=== PATIENT | male | born 1940 | race African-American/Black ===

== ENCOUNTER 2016-11-27 09:32 | Emergency (ER) | payer MEDICARE, BC ==
[~2016-11-27] VITALS: Ht 185.4 cm; Wt 98.0 kg
[~2016-11-27 09:32] MED LIST: NAPROSYN500 MG OR; NO MEDICATION
[2016-11-27] MEDS ORDERED: PREDNISONE10 MG PO (09:50)
[2016-11-27] MEDS ORDERED: TRAMADOL HYDROC50 MG PO (09:50)
[2016-11-27] MEDS ORDERED: COLCHICINE0.6 M2 PO (09:50)
[2016-11-27 10:45] VITALS: BP 166/84
== END 2016-11-27 10:45 | disposition home or self-care (01) ==
LOC: ED 09:32
PROC: 2W3CX1Z Immobilization of Right Lower Arm using Splint (ICD-10-PCS; principal; 2016-11-27)
DX: M10.031 Idiopathic gout, right wrist (principal); M25.531 Pain in right wrist

== ENCOUNTER → 2018-08-06 | Outpatient (REF) | payer MEDICARE, BC ==
[~2018-08-06] MED LIST changes: +COLCHICINE0.6 M2 PO; +METFORMIN500 MG PO; +PREDNISONE10 MG PO; +TRAMADOL HYDROC50 MG PO
[2018-08-06 08:32] LABS: ALBUMIN 3.9 g/dL (3.2-5.0); ANION GAP 14 (6-22 (CALC)); BILIRUBIN, TOTAL 0.7 mg/dL (0.0-1.4); BUN 18 mg/dL (8-23); BUN/CREATININE RATIO 14 (12-20 (CALC)); CALCULATED LDLCHOLESTEROL 122 mg/dL (62-129 (CALC)); CARBON DIOXIDE 31 mmol/l (22-30); CHLORIDE 97 mmol/l (95-108); CHOLESTEROL HDL RATIO 4.4 (<4.4 (CALC)); CREATININE 1.3 mg/dL (0.7-1.3); GFR 53 ML/MIN (>=60 (CALC)); GFR FOR AFR.AMER. > 60 ML/MIN (>=60 (CALC)); HDL CHOLESTEROL 43 mg/dL (>=40); POTASSIUM 4.7 mmol/l (3.5-5.1); SGOT/AST 24 u/l (19-48); SODIUM 137 mmol/l (137-146); TOTAL CHOLESTEROL 192 mg/dl (0-199); TOTAL PROTEIN 7.1 g/dL (6.3-8.2); TOTAL TRIGLYCERIDES 136 mg/dl (30-149); VLDL CHOLESTROL 27 mg/dl (0-38 (CALC))
[2018-08-06 09:34] LABS: ALKALINE PHOSPHATASE 162 u/l (38-126)
== END | disposition home or self-care (01) ==
LOC: LAB 06:51
PROVIDERS: ATTEND Internal Medicine Endocrinology, Diabetes & Metabolism
DX: E78.5 Hyperlipidemia, unspecified (principal); E11.9 Type 2 diabetes mellitus without complications; I10 Essential (primary) hypertension

== ENCOUNTER 2018-08-14 23:15 | Emergency (ER) | payer MEDICARE, BC ==
[~2018-08-14] VITALS: Ht 185.4 cm; Wt 90.0 kg
[~2018-08-14 23:15] MED LIST changes: -METFORMIN500 MG PO
[2018-08-14 23:59] LABS: HEMOGLOBIN 14.9 g/dl (14.0-18.0); IMMATURE GRANULOCYTES 0.2 % (0.0-5.0); MEAN CELL VOLUME 85.5 fL CALC (80.0-100.0); MEAN CORPUSCULAR HGB 30.3 pG CALC (26.0-32.0); MEAN CORPUSCULAR HGB CONC 35.5 g/L CALC (32.0-36.0); NEUT# 2.28 thou/uL (1.82-7.42); RED BLOOD COUNT 4.91 mill/uL (4.70-6.10); RED CELL DISTRI WIDTH 12.1 % (11.5-15.5)
[2018-08-15] MEDS ORDERED: METFORMIN500 MG PO (00:09)
[2018-08-15 00:11] LABS: ALBUMIN 4.2 g/dL (3.2-5.0); ALKALINE PHOSPHATASE 198 u/l (38-126); BILIRUBIN, TOTAL 0.6 mg/dL (0.0-1.4); BUN 19 mg/dL (8-23); BUN/CREATININE RATIO 15 (12-20 (CALC)); CARBON DIOXIDE 26 mmol/l (22-30); CHLORIDE 93 mmol/l (95-108); CREATININE 1.3 mg/dL (0.7-1.3); GFR 53 ML/MIN (>=60 (CALC)); GFR FOR AFR.AMER. > 60 ML/MIN (>=60 (CALC)); POTASSIUM 4.7 mmol/l (3.5-5.1); SGOT/AST 35 u/l (19-48); TOTAL PROTEIN 7.2 g/dL (6.3-8.2)
[2018-08-15 00:19] LABS: ANION GAP 16 (6-22 (CALC)); SODIUM 130 mmol/l (137-146)
[2018-08-15 00:47] LABS: URINE BILIRUBIN - DIPSTICK NEGATIVE (NEGATIVE); URINE BLOOD DIPSTICK NEGATIVE (NEGATIVE); URINE COLOR YELLOW; URINE GLUCOSE - DIPSTICK >=1000 mg/dL (NEGATIVE); URINE KETONE NEGATIVE (NEGATIVE); URINE LEUK ESTERASE NEGATIVE (NEGATIVE); URINE NITRITE - DIPSTICK NEGATIVE (Negative); URINE PROTEIN - DIPSTICK NEGATIVE (NEG-TRACE); URINE UROBILINOGEN - DIPSTICK 0.2 E.U./dL (0.2)
[2018-08-15 01:28] VITALS: BP 142/79
== END 2018-08-15 01:43 | disposition home or self-care (01) ==
LOC: ED 23:15
PROVIDERS: Family Medicine
DX: E11.65 Type 2 diabetes mellitus with hyperglycemia (principal); E78.00 Pure hypercholesterolemia, unspecified; Z91.11 Patient's noncompliance with dietary regimen

== ENCOUNTER 2021-06-17 16:36 | Inpatient (IN) | payer MEDICARE, BC ==
[~2021-06-17] VITALS: Ht 185.4 cm; Wt 93.0 kg
[~2021-06-17 16:36] MED LIST changes: +METFORMIN500 MG PO
[2021-06-17 17:06] LABS: GFR 58 ML/MIN (>=60 (CALC)); GFR FOR AFR.AMER. > 60 ML/MIN (>=60 (CALC))
[2021-06-17 17:08] LABS: HEMATOCRIT 43.5 % (39.0-50.0); HEMOGLOBIN 14.6 g/dl (14.0-18.0); IMMATURE GRANULOCYTES 0.2 % (0.0-5.0); MEAN CELL VOLUME 89.3 fL CALC (80.0-100.0); MEAN CORPUSCULAR HGB CONC 33.6 g/dL CAL (32.0-36.0); NEUT# 2.58 thou/uL (1.82-7.42); RED BLOOD COUNT 4.87 mill/uL (4.70-6.10); RED CELL DISTRI WIDTH 13.3 % (11.5-15.5)
[2021-06-17 17:26] LABS: ALBUMIN 3.9 g/dL (3.2-5.0); ALKALINE PHOSPHATASE 100 u/l (38-126); ANION GAP 11 (6-22 (CALC)); BILIRUBIN, TOTAL 0.5 mg/dL (0.0-1.4); BUN 15 mg/dL (8-23); BUN/CREATININE RATIO 13 (12-20 (CALC)); CARBON DIOXIDE 26 mmol/l (22-30); CHLORIDE 105 mmol/l (95-108); CREATININE 1.2 mg/dL (0.7-1.3); ETHYL ALCOHOL 0 mg/dl (0-30); GFR 58 ML/MIN (>=60 (CALC)); GFR FOR AFR.AMER. > 60 ML/MIN (>=60 (CALC)); LIPASE 33 u/l (23-300); POTASSIUM 4.1 mmol/l (3.5-5.1); SGOT/AST 23 u/l (19-48); SODIUM 138 mmol/l (137-146); TOTAL PROTEIN 7.5 g/dL (6.3-8.2)
[2021-06-17 17:31] LABS: ACT PARTIAL THROMBO TIME 21.3 SECONDS (20.0-32.5); PROTHROMBIN TIME 10.2 SECONDS (9.0-12.5)
[2021-06-17 18:13] LABS: URINE BILIRUBIN - DIPSTICK NEGATIVE (NEGATIVE); URINE BLOOD DIPSTICK NEGATIVE (NEGATIVE); URINE COLOR YELLOW; URINE GLUCOSE - DIPSTICK NEGATIVE (NEGATIVE); URINE KETONE NEGATIVE (NEGATIVE); URINE LEUK ESTERASE NEGATIVE (NEGATIVE); URINE PROTEIN - DIPSTICK NEGATIVE (NEG-TRACE); URINE UROBILINOGEN - DIPSTICK 0.2 E.U./dL (0.2)
[2021-06-17 18:17] LABS: URINE NITRITE - DIPSTICK NEGATIVE (Negative)
[2021-06-17] MEDS ORDERED: AMLODIPINE BESYL5 MG PO (19:11)
[2021-06-17 20:45] VITALS: BP 180/91
[2021-06-17 21:00] VITALS: BP 180/93
[2021-06-17 21:15] VITALS: BP 184/98
[2021-06-17 21:30] VITALS: BP 184/98
[2021-06-17 22:00] VITALS: BP 159/95
[2021-06-17 23:00] VITALS: BP 175/105
[2021-06-18] VITALS (12 sets, daily range): BP systolic 152–176; BP diastolic 72–89
[2021-06-18 05:46] LABS: C-REACTIVE PROTEIN < 0.5 mg/dL (0-0.9); CALCULATED LDLCHOLESTEROL 118 mg/dL (62-129 (CALC)); CHOLESTEROL HDL RATIO 4.5 (<4.4 (CALC)); HDL CHOLESTEROL 39 mg/dL (>=40); MAGNESIUM 2.1 mg/dL (1.6-2.3); TOTAL CHOLESTEROL 176 mg/dl (0-199); TOTAL TRIGLYCERIDES 91 mg/dl (30-149); VLDL CHOLESTROL 18 mg/dl (0-38 (CALC))
[2021-06-19] VITALS: BP 148/69
[2021-06-19 03:39] VITALS: BP 156/78
[2021-06-19 05:27] LABS: ANION GAP 8 (6-22 (CALC)); BUN 16 mg/dL (8-23); BUN/CREATININE RATIO 14 (12-20 (CALC)); CARBON DIOXIDE 29 mmol/l (22-30); CHLORIDE 106 mmol/l (95-108); CREATININE 1.2 mg/dL (0.7-1.3); GFR 58 ML/MIN (>=60 (CALC)); GFR FOR AFR.AMER. > 60 ML/MIN (>=60 (CALC)); POTASSIUM 4.4 mmol/l (3.5-5.1); SODIUM 139 mmol/l (137-146)
[2021-06-19 10:21] VITALS: BP 143/73
[2021-06-19] MEDS ORDERED: LIPITOR80 M1 PO (11:10)
[2021-06-19] MEDS ORDERED: LISINOPRIL10 MG PO (11:10)
[2021-06-19] MEDS ORDERED: BAYER ASPIRIN325 M1 PO (11:11)
[2021-06-19] MEDS ORDERED: METFORMIN500 M2 PO (11:12)
== END 2021-06-19 13:39 | disposition home or self-care (01) | DRG 66 ==
LOC: ED 16:36 → ED-I 18:50 → ED 19:07 → ICU 19:08 → MS2 06-18 14:00
PROVIDERS: ADMIT Internal Medicine; ATTEND Internal Medicine
DX: I63.522 Cerebral infarction due to unspecified occlusion or stenosis of left anterior cerebral artery (principal); R29.810 Facial weakness; R47.81 Slurred speech; R29.703 NIHSS score 3; I10 Essential (primary) hypertension; E11.9 Type 2 diabetes mellitus without complications; E78.5 Hyperlipidemia, unspecified; Z20.822 Contact with and (suspected) exposure to COVID-19
CPT/HCPCS: Q9967

== ENCOUNTER 2022-01-16 14:38 | Observation (INO) | payer MEDICARE, BC ==
[2022-01-16] VITALS (13 sets, daily range): BP systolic 142–166; BP diastolic 71–87
[~2022-01-16] VITALS: Ht 185.4 cm; Wt 92.0 kg
[~2022-01-16 14:38] MED LIST changes: +AMLODIPINE BESYL5 MG PO; +BAYER ASPIRIN325 M1 PO; +LIPITOR80 M1 PO; +LISINOPRIL10 MG PO; +METFORMIN500 M2 PO
[2022-01-16 15:15] LABS: HEMOGLOBIN 13.6 g/dl (14.0-18.0); IMMATURE GRANULOCYTES 0.2 % (0.0-5.0); MEAN CELL VOLUME 90.7 fL CALC (80.0-100.0); MEAN CORPUSCULAR HGB 30.1 pG CALC (26.0-32.0); MEAN CORPUSCULAR HGB CONC 33.2 g/dL CAL (32.0-36.0); NEUT# 2.78 thou/uL (1.82-7.42); RED BLOOD COUNT 4.52 mill/uL (4.70-6.10); RED CELL DISTRI WIDTH 13.4 % (11.5-15.5)
[2022-01-16 15:25] LABS: ALBUMIN 3.7 g/dL (3.2-5.0); ALKALINE PHOSPHATASE 75 u/l (38-126); ANION GAP 11 (6-22 (CALC)); BILIRUBIN, TOTAL 0.4 mg/dL (0.0-1.4); BUN 20 mg/dL (8-23); BUN/CREATININE RATIO 15 (12-20 (CALC)); CARBON DIOXIDE 23 mmol/l (22-30); CHLORIDE 107 mmol/l (95-108); CREATININE 1.3 mg/dL (0.7-1.3); GFR FOR AFR.AMER. > 60 ML/MIN (>=60 (CALC)); GFR OTHER RACES 53 ML/MIN (>=60 (CALC)); POTASSIUM 3.6 mmol/l (3.5-5.1); SGOT/AST 21 u/l (19-48); SODIUM 137 mmol/l (137-146)
[2022-01-16 15:41] LABS: URINE BILIRUBIN - DIPSTICK NEGATIVE (NEGATIVE); URINE BLOOD DIPSTICK NEGATIVE (NEGATIVE); URINE COLOR YELLOW; URINE GLUCOSE - DIPSTICK NEGATIVE (NEGATIVE); URINE KETONE NEGATIVE (NEGATIVE); URINE LEUK ESTERASE NEGATIVE (NEGATIVE); URINE PROTEIN - DIPSTICK NEGATIVE (NEG-TRACE); URINE SPECIFIC GRAVITY >=1.030; URINE UROBILINOGEN - DIPSTICK 0.2 E.U./dL (0.2)
[2022-01-16 15:43] LABS: URINE NITRITE - DIPSTICK NEGATIVE (Negative)
[2022-01-17 00:03] VITALS: BP 136/75
[2022-01-17 04:11] VITALS: BP 143/70
[2022-01-17 06:10] LABS: HEMATOCRIT 39.6 % (39.0-50.0); IMMATURE GRANULOCYTES 0.3 % (0.0-5.0); MEAN CORPUSCULAR HGB 29.9 pG CALC (26.0-32.0); MEAN CORPUSCULAR HGB CONC 32.8 g/dL CAL (32.0-36.0); NEUT# 1.28 thou/uL (1.82-7.42); RED BLOOD COUNT 4.35 mill/uL (4.70-6.10); RED CELL DISTRI WIDTH 13.5 % (11.5-15.5)
[2022-01-17 06:29] VITALS: BP 147/82
[2022-01-17 06:30] LABS: ALBUMIN 3.2 g/dL (3.2-5.0); ALKALINE PHOSPHATASE 67 u/l (38-126); BILIRUBIN, TOTAL 0.3 mg/dL (0.0-1.4); BUN 21 mg/dL (8-23); BUN/CREATININE RATIO 19 (12-20 (CALC)); C-REACTIVE PROTEIN 2.2 mg/dL (0-0.9); CHLORIDE 107 mmol/l (95-108); CREATININE 1.1 mg/dL (0.7-1.3); GFR FOR AFR.AMER. > 60 ML/MIN (>=60 (CALC)); GFR OTHER RACES > 60 ML/MIN (>=60 (CALC)); POTASSIUM 4.1 mmol/l (3.5-5.1); SGOT/AST 23 u/l (19-48); SODIUM 137 mmol/l (137-146); TOTAL PROTEIN 6.1 g/dL (6.3-8.2)
[2022-01-17 06:43] LABS: ANION GAP 5 (6-22 (CALC)); CARBON DIOXIDE 29 mmol/l (22-30)
[2022-01-17 08:46] VITALS: BP 147/82
[2022-01-17] MEDS ORDERED: AMLODIPINE BESYL5 MG PO (12:07)
[2022-01-17] MEDS ORDERED: ADLT ASA LOW81 MG PO (12:07)
[2022-01-17] MEDS ORDERED: LISINOPRIL10 MG PO (12:07)
[2022-01-17] MEDS ORDERED: ATORVASTATIN CA40 MG PO (12:07)
== END 2022-01-17 16:40 ==
LOC: ED 14:38 → ED-I 16:20 → ED 17:07 → MS2 17:08
PROVIDERS: Internal Medicine; ADMIT Internal Medicine; ATTEND Internal Medicine
PROC: 3E0234Z Introduction of Serum, Toxoid and Vaccine into Muscle, Percutaneous Approach (ICD-10-PCS; principal; 2022-01-17)
DX: U07.1 COVID-19 (principal); R53.1 Weakness; R53.83 Other fatigue; I10 Essential (primary) hypertension; E11.9 Type 2 diabetes mellitus without complications; E78.5 Hyperlipidemia, unspecified; F17.200 Nicotine dependence, unspecified, uncomplicated; Z86.73 Personal history of transient ischemic attack (TIA), and cerebral infarction without residual deficits; Z79.84 Long term (current) use of oral hypoglycemic drugs; Z23 Encounter for immunization; Z91.14 Patient's other noncompliance with medication regimen
CPT/HCPCS: J1650; Q9967